=== PATIENT | female | born 1985 | race Caucasian/White ===

== ENCOUNTER 2016-03-09 10:08 | Observation (INO) | payer OTHER ==
[2014-05-28 11:46] VITALS: BP 138/69
[2016-03-09] MEDS ORDERED: ONDANSETRON PF 4 MG/2 ML VIAL. IV PRN (11:15)
[2016-03-09] MEDS ORDERED: MAG HYDROX/AL HYDROX/SIMETH 30 ML ORAL.SUSP PO PRN (11:15)
[2016-03-09] MEDS ORDERED: IV RINGERS,LACTATED 1000ML 1,000 ML IV PRN (11:15)
[2016-03-09] MEDS ORDERED: ACETAMINOPHEN 325 MG TABLET. PO PRN (11:15)
[2016-03-09 11:34] LABS: BARBITURATES NEG (NEG); BENZODIAZEPINES NEG (NEG); CANNABINOIDS NEG (NEG); COCAINE NEG (NEG); ETHANOL, URINE NEG (NEG); METHADONE NEG (NEG); OPIATES NEG (NEG); PHENCYCLIDINE NEG (NEG)
[2016-03-09 12:37] LABS: BILIRUBIN,URINE MODERATE (NEG); GLUCOSE,URINE NEGATIVE (NEG); NITRITE,URINE NEGATIVE (NEG)
[2016-03-09 12:47] LABS: BACTERIA,URINE 0 /HPF (0-FEW); PROTEIN,URINE NEGATIVE (NEG-TRACE); RBC,URINE 0 /HPF (0-2); SQUAMOUS EPITHELIAL CELL,UR MOD /LPF
== END 2016-03-09 15:45 | disposition home or self-care (01) ==
LOC: 3 SO LND 10:08
PROVIDERS: ADMIT Obstetrics & Gynecology; ATTEND Obstetrics & Gynecology
DX: O26.893 Other specified pregnancy related conditions, third trimester (principal); R19.7 Diarrhea, unspecified; R11.10 Vomiting, unspecified; Z3A.31 31 weeks gestation of pregnancy
CPT/HCPCS: 81001; 87086; G0378; G0379; G0481

== ENCOUNTER 2016-04-22 17:14 | Observation (INO) | payer OTHER ==
[2014-05-28 11:46] VITALS: BP 138/69
== END 2016-04-22 20:15 | disposition home or self-care (01) ==
LOC: 3 SO LND 17:14
PROVIDERS: ADMIT Obstetrics & Gynecology; ATTEND Obstetrics & Gynecology
DX: O26.893 Other specified pregnancy related conditions, third trimester (principal); R10.9 Unspecified abdominal pain; M54.9 Dorsalgia, unspecified; Z3A.37 37 weeks gestation of pregnancy
CPT/HCPCS: G0378; G0379

== ENCOUNTER 2016-05-05 05:28 | Inpatient (IN) | payer OTHER ==
[~2016-05-05] VITALS: Ht 154.9 cm; Wt 110.7 kg
[2016-05-05 05:59] VITALS: BP 129/69
[2016-05-05] MEDS ORDERED: 0.9 % SODIUM CHLORIDE 10 ML DISP.SYRIN. IV PRN ×2 (06:00→16:15)
[2016-05-05] MEDS ORDERED: TERBUTALINE 1 MG/ML VIAL. SQ PRN (06:00)
[2016-05-05] MEDS ORDERED: FENTANYL PF 100 MCG/2 ML VIAL. IV PRN (06:00)
[2016-05-05] MEDS ORDERED: BUTORPHANOL 2 MG VIAL. IV PRN (06:00)
[2016-05-05] MEDS ORDERED: ONDANSETRON PF 4 MG/2 ML VIAL. IV PRN ×2 (06:00→09:45)
[2016-05-05] MEDS ORDERED: MAG HYDROX/ALUMINUM HYD/SIMETH 30 ML ORAL.SUSP PO PRN ×2 (06:00→16:15)
[2016-05-05] MEDS ORDERED: IBUPROFEN 600 MG TABLET. PO PRN (06:00)
[2016-05-05] MEDS ORDERED: OXYTOCIN 30 UNIT/500 ML PREMIX 500 ML IV PRN ×3 (06:00→16:15)
[2016-05-05] MEDS ORDERED: LIDOCAINE 1% PF 30 ML VIAL. INJ PRN (06:00)
[2016-05-05] MEDS ORDERED: PENICILLIN G K 5,000,000 UNIT in IV NORMAL SALINE 100ML 100 ML IV ONE (06:00)
[2016-05-05] MEDS ORDERED: ACETAMINOPHEN 325 MG TABLET. PO PRN ×2 (06:00→16:15)
[2016-05-05] MEDS: IV RINGERS,LACTATED 1000ML 1,000 ML IV SCH ×2 (06:45→11:17)
[2016-05-05 07:14] LABS: HEMATOCRIT 34.1 % (36.0-47.0); HEMOGLOBIN 10.9 g/dL (12.0-15.5); RED BLOOD COUNT 4.16 x10^6/uL (3.50-5.40); RED CELL DISTRIBUTION WIDTH 15.1 % (11.5-14.5); WHITE BLOOD COUNT 16.4 x10^3/uL (4.0-11.0)
--- NOTE | 2016-05-05 08:47 | PDOC1 ---
OB - History Hx of Present Care: Good Care Ultrasounds: Normal mid trimester US Obstetrical Complications: None Medical Complications: None Other Concerns: H/o and desires again Past Family/Social History * Past Medical, Surgical, Family and Obstetric Histories reviewed from chart. Rubella: Immune RPR/VDRL: Negative GBS Status: Negative HBsAG: Negative OB - Chief Complaint & HPI Date of Admission: Date of Admission: May 05, 2016 at 05:28 Chief Complaint/History : 2 Para: 3 EGA: 39 Reason for admission: induction of labor Indication for induction: maternal discomfort Admission Nurse Assessment Rev: Yes Problems: OB - Admission Exam Physical Exam Vitals: VS - Last 72 Hours, by Label Date Time Temp Pulse Resp B/P Pulse Ox O2 Delivery O2 Flow Rate FiO2 05/05/16 05:59 109 20 129/69 Room Air HEENT: Normal Heart: Regular Rate Lungs: Clear Abdomen: Gravid, Non tender, Soft Extremities: Edema Reflexes: Normal Cervical Dilatation: 2cm Effacement: 75% Station: -3 Membranes: Intact Heart Rate: Normal Accelerations: Accelerations Present Decelerations: No decelerations Contractions on Admission: >10 Minutes Apart Intensity: Mild Text A: 39 wks IUP H/o c/s x 1 for twins H/o twins IOL secondary to maternal discomforts of P: Admit for IOL with pitocin. VIPUL OCONNOR Jr, MD May 05, 2016 08:47
[2016-05-05] MEDS ORDERED: ROPIVacaine 0.2% IN 0.9%NACL PF 40 MG/20 ML DISP.SYRIN. ONE ×2 (09:43→11:41)
[2016-05-05] MEDS ORDERED: EPHEDRINE PF IN SALINE 50 MG/5 ML DISP.SYRIN. IV PRN (09:45)
[2016-05-05] MEDS ORDERED: L&D EPIDURAL CASSETTE 100 ML EP PRN (09:45)
[2016-05-05] MEDS ORDERED: NALOXONE 0.4 MG/ML VIAL. IV PRN (09:45)
[2016-05-05] MEDS ORDERED: FENTANYL PF 100 MCG/2 ML VIAL. EPI ONE (09:45)
[2016-05-05] MEDS ORDERED: ROPIVacaine 0.2% PF 10 ML VIAL. EPI ONE (09:45)
[2016-05-05] MEDS: PENICILLIN G K 2,500,000 UNIT in IV NORMAL SALINE 50ML 50 ML IV SCH ×2 (10:20→14:10)
[2016-05-05] MEDS ORDERED: EPHEDRINE PF IN SALINE 50 MG/5 ML DISP.SYRIN. IV ONE (12:43)
[2016-05-05] MEDS ORDERED: EPHEDRINE SULFATE 50 MG/ML VIAL. ONE (13:38)
--- NOTE | 2016-05-05 16:09 | PDOC ---
VAGINAL DELIVERY DATE DATE: 05/05/16 TIME: 16:08 : 3 Para: 5 EGA: 39 VAGINAL DELIVERY: VTX VACCUM ASSISTED: No PLACENTA: Spontaneous 8/8 SEX: Female WEIGHT Weight [3415 gm ] Nuchal Cord: Yes, Times 1 Amniotic Fluid: Clear PAIN: Epidural EPISIOTOMY: No EXTENSION: No EBL 300 ml COMPLICATIONS none CONDITION pt. stable Signs of Intrauterine Infectio: None Shoulder Dystocia: No Problems: VIPUL OCONNOR Jr, MD May 05, 2016 16:09
[2016-05-05] MEDS ORDERED: BENZOCAINE 20% TOPICAL AEROSOL SPRAY 57GM CAN. TP PRN (16:15)
[2016-05-05] MEDS ORDERED: SIMETHICONE 80 MG TAB.CHEW PO PRN (16:15)
[2016-05-05] MEDS ORDERED: MMR per PROTOCOL. MC PRN (16:15)
[2016-05-05] MEDS ORDERED: ZOLPIDEM 5 MG TABLET. PO PRN (16:15)
[2016-05-05] MEDS ORDERED: DOCUSATE SODIUM 100 MG CAPSULE PO PRN (16:15)
[2016-05-05] MEDS ORDERED: OXYCODONE/APAP 5/325 TABLET. PO PRN (16:15)
[2016-05-05] MEDS ORDERED: MAGNESIUM HYDROXIDE 2,400 MG/30 ML ORAL.SUSP. PO PRN (16:15)
[2016-05-05] MEDS ORDERED: PHENYLEPH/MINERAL OIL/PETROLAT RECTAL OINTMENT 28GM TUBE. RC PRN (16:15)
[2016-05-05] MEDS ORDERED: HYDROCORTISONE 1% TOPICAL OINTMENT 30GM TUBE. TP PRN (16:15)
[2016-05-05] MEDS ORDERED: DIPHENHYDRAMINE HCL 25 MG CAPSULE PO PRN (16:15)
[2016-05-05 19:39] VITALS: BP 103/49
[2016-05-05 20:40] VITALS: BP 102/47
[2016-05-05] MEDS: IBUPROFEN 800 MG TABLET. PO PRN (22:36)
[2016-05-05 23:43] VITALS: BP 118/68
[2016-05-06 04:54] LABS: BASO # 0.1 x10^3/uL (0.0-0.2); BASO % 1 % (0-3); EOS % 2 % (0-3); HEMOGLOBIN 9.7 g/dL (12.0-15.5); LYMPH % 18 % (24-48); MEAN CORPUSCULAR HEMOGLOBIN 27 pg (25-35); MEAN CORPUSCULAR HGB CONC 32 g/dL (31-37); MEAN CORPUSCULAR VOLUME 82 fL (79-100); MONO % 9 % (0-9); NEUT % 71 % (31-73); PLATELET COUNT 252 x10^3/uL (140-400); RED BLOOD COUNT 3.66 x10^6/uL (3.50-5.40); RED CELL DISTRIBUTION WIDTH 15.3 % (11.5-14.5); WHITE BLOOD COUNT 16.4 x10^3/uL (4.0-11.0)
[2016-05-06 06:03] VITALS: BP 95/40
[2016-05-06] MEDS ORDERED: FERROUS SULFATE 325 MG TABLET PO SCH (08:00)
--- NOTE | 2016-05-06 09:35 | PDOC ---
OB Progress Note Date of Service 05/06/16 Time of Evaluation 6776 Notes Pt. feeling well. Encouraged patient to remain on floor and counseled on nicotine patch. She will use nicotine patch while in hospital. Lochia minimal. Lab Laboratory Tests Test 05/05/16 06:20 05/06/16 04:30 White Blood Count 16.4x10^3/uL (4.0-11.0) 16.4x10^3/uL (4.0-11.0) Red Blood Count 4.16x10^6/uL (3.50-5.40) 3.66x10^6/uL (3.50-5.40) Hemoglobin 10.9g/dL (12.0-15.5) 9.7g/dL (12.0-15.5) Hematocrit 34.1% (36.0-47.0) 30.0% (36.0-47.0) Mean Corpuscular Volume 82fL (79-100) 82fL (79-100) Mean Corpuscular Hemoglobin 26pg (25-35) 27pg (25-35) Mean Corpuscular Hemoglobin Concent 32g/dL (31-37) 32g/dL (31-37) Red Cell Distribution Width 15.1% (11.5-14.5) 15.3% (11.5-14.5) Platelet Count 282x10^3/uL (140-400) 252x10^3/uL (140-400) Neutrophils (%) (Auto) 71% (31-73) Lymphocytes (%) (Auto) 18% (24-48) Monocytes (%) (Auto) 9% (0-9) Eosinophils (%) (Auto) 2% (0-3) Basophils (%) (Auto) 1% (0-3) Neutrophils # (Auto) 11.7x10^3uL (1.8-7.7) Lymphocytes # (Auto) 3.0x10^3/uL (1.0-4.8) Monocytes # (Auto) 1.4x10^3/uL (0.0-1.1) Eosinophils # (Auto) 0.3x10^3/uL (0.0-0.7) Basophils # (Auto) 0.1x10^3/uL (0.0-0.2) Laboratory Tests Test 05/06/16 04:30 White Blood Count 16.4x10^3/uL (4.0-11.0) Red Blood Count 3.66x10^6/uL (3.50-5.40) Hemoglobin 9.7g/dL (12.0-15.5) Hematocrit 30.0% (36.0-47.0) Mean Corpuscular Volume 82fL (79-100) Mean Corpuscular Hemoglobin 27pg (25-35) Mean Corpuscular Hemoglobin Concent 32g/dL (31-37) Red Cell Distribution Width 15.3% (11.5-14.5) Platelet Count 252x10^3/uL (140-400) Neutrophils (%) (Auto) 71% (31-73) Lymphocytes (%) (Auto) 18% (24-48) Monocytes (%) (Auto) 9% (0-9) Eosinophils (%) (Auto) 2% (0-3) Basophils (%) (Auto) 1% (0-3) Neutrophils # (Auto) 11.7x10^3uL (1.8-7.7) Lymphocytes # (Auto) 3.0x10^3/uL (1.0-4.8) Monocytes # (Auto) 1.4x10^3/uL (0.0-1.1) Eosinophils # (Auto) 0.3x10^3/uL (0.0-0.7) Basophils # (Auto) 0.1x10^3/uL (0.0-0.2) Medications Current Medications Sodium Chloride 3 ml 3 ml QSHIFT PRN IV AFTER MEDS AND BLOOD DRAWS; Start 05/05 at 06:00 Lactated Ringer's (Iv Lactated Ringers) 1,000 ml @ 125 mls/hr Q8H IV Last administered on 05/05/16t 11:17; Start 05/05/16 at 05:48 Butorphanol Tartrate (Stadol) 2 mg PRN Q1HR PRN IV Severe labor pain; Start 12/12 at 06:00 Fentanyl Citrate (Fentanyl 2ml Vial) 100 mcg PRN Q20MIN PRN IV Labor pain; Start 05/05/16 at 06:00 Acetaminophen (Tylenol) 650 mg PRN Q6HRS PRN PO MILD PAIN / TEMP; Start at 06:00 Ondansetron HCl (Zofran) 4 mg PRN Q4HRS PRN IV NAUSEA/VOMITING; Start 05/05/16 at 06:00 Al Hydroxide/Mg Hydroxide (Mylanta Plus Xs) 30 ml PRN Q4HRS PRN PO HEARTBURN / GAS; Start 05/05/16 at 06:00; Stop 05/06/16 at 04:51; Status DC Terbutaline Sulfate (Brethine) 0.25 mg 1X PRN PRN SQ SEE COMMENTS; Start at 06:00; Stop 05/06/16 at 05:59; Status DC Lidocaine HCl 30 ml 30 ml 1X PRN PRN INJ SEE COMMENTS; Start 05/05/16 at 06:00 ; Stop 05/07/16 at 05:59 Oxytocin/Sodium Chloride 500 ml @ 0 mls/hr CONT PRN IV SEE I/O RECORD Last administered on 05/05/16 07:41; Start 05/05/16 at 06:00; Stop 05/06/16 at 04:52 ; Status DC Oxytocin/Sodium Chloride (Oxytocin Premix Infusion) 500 ml @ 0 mls/hr CONT PRN PRN IV Post delivery bleeding; Start 05/05/16 at 06:00 Ibuprofen 600 mg 600 mg PRN Q6HRS PRN PO PAIN; Start 05/05/16 at 06:00 Penicillin G Potassium [id number] unit/Sodium Chloride 100 ml @ 100 mls/hr 1X ONCE IV Last administered on 05/05/16 06:45; Start 05/05/16 at 06:00; Stop 12/12 at 06:59; Status DC Penicillin G Potassium/Sodium Chloride (Pfizerpen/Iv Sodium Chloride 0.9% 50ml) 50 ml @ 100 mls/hr Q4H IV Last administered on 05/05/16 14:10; Start at 10:00; Stop 05/06/16 at 04:52; Status DC Ephedrine Sulfate 10 mg PRN Q2MIN PRN IV IF SBP<90 Last administered on 12:46; Start 05/05/16 at 09:45 Naloxone HCl (Narcan) 0.04 mg PRN Q1MIN PRN IV SEE COMMENTS; Start 05/05/16 at 09:45 Fentanyl Citrate 100 mcg 100 mcg 1X ONCE EPI Last administered on 05/05/16 09 :58; Start 05/05/16 at 09:45; Stop 05/05/16 at 09:47; Status DC Ropivacaine/ Fentanyl/NS (Gobslqoq-Otklp-DC 3 Mcg-0.1%) 100 ml @ 14 mls/hr CONT PRN EP PAIN Last administered on 05/05/16 10:01; Start 05/05/16 at 09:45 Ondansetron HCl (Zofran) 4 mg PRN Q6HRS PRN IV NAUSEA/VOMITING; Start 05/05/16 at 09:45 Ropivacaine (Naropin 0.2%) 20 ml 1X ONCE EPI ; Start 05/05/16 at 09:45; Stop at 09:47; Status DC Ropivacaine 40 mg STK-MED ONCE .ROUTE Last administered on 05/05/16 14:10; Start 05/05/16 at 09:43; Stop 05/05/16 at 09:44; Status DC Ropivacaine 40 mg STK-MED ONCE .ROUTE Last administered on 05/05/16 12:31; Start 05/05/16 at 11:41; Stop 05/05/16 at 11:42; Status DC Ephedrine Sulfate 50 mg STK-MED ONCE IV ; Start 05/05/16 at 12:43; Stop at 12:44; Status DC Ephedrine Sulfate (Akovaz) 50 mg STK-MED ONCE .ROUTE ; Start 05/05/16 at 13:38; Stop 05/05/16 at 13:39; Status DC Sodium Chloride 10 ml 10 ml QSHIFT PRN IV AFTER MEDS AND BLOOD DRAWS; Start 12/12 at 16:15 Oxytocin/Sodium Chloride (Oxytocin Premix Infusion) 500 ml @ 62.5 mls/hr CONT PRN IV SEE I/O RECORD; Start 05/05/16 at 16:15; Stop 05/06/16 at 00:14; Status DC Acetaminophen (Tylenol) 650 mg PRN Q6HRS PRN PO MILD PAIN / TEMP; Start at 16:15; Stop 05/06/16 at 04:51; Status DC Ibuprofen (Motrin) 800 mg PRN Q8HRS PRN PO INFLAMMATION/PAIN PREVENTION Last administered on 05/05/16t 22:36; Start 05/05/16 at 16:15 Docusate Sodium (Colace) 100 mg PRN BID PRN PO CONSTIPATION; Start 05/05/16 at 16:15 Magnesium Hydroxide (Milk Of Magnesia) 2,400 mg PRN DAILY PRN PO CONSTIPATION; Start 05/05/16 at 16:15 Al Hydroxide/Mg Hydroxide (Mylanta Plus Xs) 30 ml PRN Q4HRS PRN PO HEARTBURN / GAS; Start 05/05/16 at 16:15 Simethicone (Gas-X) 80 mg PRN AFTMEALHC PRN PO GAS / BLOATING; Start 05/05/16 at 16:15 Diphenhydramine HCl (Benadryl) 25 mg PRN Q6HRS PRN PO ITCHING; Start 05/05/16 at 16:15 Benzocaine (Americaine) 1 spray PRN QID PRN TP TOPICAL PAIN; Start 05/05/16 at 16:15 Phenyleph/Shark Oil/Min Oil/Petrol (Preparation H) 1 erin PRN QID PRN RC RECTAL PAIN; Start 05/05/16 at 16:15 Hydrocortisone (Cortaid) 1 erin PRN QID PRN TP PERINEAL PAIN; Start 05/05/16 at 16:15 Ferrous Sulfate (Feosol) 325 mg BIDWMEALS PO ; Start 05/06/16 at 08:00 Zolpidem Tartrate (Ambien) 5 mg PRN QHS PRN PO INSOMNIA, MAY REPEAT X1; Start 05/05/16 at 16:15 Info (Do NOT chart on this placeholder) 1 ea 1X PRN PRN MC SEE COMMENTS; Start 05/05/16 at 16:15 Info (Do NOT chart on this placeholder) 1 ea 1X PRN PRN MC SEE COMMENTS; Start 05/05/16 at 16:15 Oxycodone/ Acetaminophen (Percocet 5/325) 2 tab PRN Q4HRS PRN PO MODERATE PAIN , SEVERE PAIN; Start 05/05/16 at 16:15 Exam Abd: soft, non tender, fundus firm Assessment PPD#1 s/p Plan of Care: Continue current Tx, Mgmt (Nicotine patch.) IVPUL OCONNOR Jr, MD May 06, 2016 09:35
[2016-05-06] MEDS ORDERED: NICOTINE 14MG PATCH. TD SCH (10:00)
[2016-05-06] MEDS: IBUPROFEN 800 MG TABLET. PO PRN ×2 (10:39→18:29)
[2016-05-06] MEDS ORDERED: NICOTINE POLACRILEX 2MG GUM PACKAGE of 12. BC PRN (12:30)
[2016-05-06 14:00] VITALS: BP 124/62
[2016-05-06 23:07] VITALS: BP 105/54
[2016-05-07 06:28] VITALS: BP 100/67
--- NOTE | 2016-05-07 09:17 | PDOC3 ---
OB DISCHARGE SUMMARY DATE OF ADMISSION: 05/05/16 DATE OF DISCHARGE: 05/07/16 REASON FOR ADMISSION: Induction of labor PROCEDURES: None INTRAPARTUM PROCEDURES: Others (-KAYLIE) PROCEDURES: None OPERATIONS: None DISCHARGE DIAGNOSIS: Term Delivered DISCHARGE INFORMATION: Activity, Diet HOSPITAL COURSE Unremarkable CONDITION AT DISCHARGE Stable DERRICK BAEZ MD May 07, 2016 09:17
[2016-05-07] MEDS ORDERED: NAPR500T PO (09:19)
[2016-05-07] MEDS ORDERED: HYDR-971 PO (09:19)
[2016-05-07 11:39] VITALS: BP 130/64
== END 2016-05-07 14:55 | disposition home or self-care (01) | DRG 775 ==
LOC: 3 SO LND 05:28 → 3 NORTH 19:25
PROVIDERS: ADMIT Obstetrics & Gynecology; ATTEND Obstetrics & Gynecology
PROC: 10E0XZZ Delivery of Products of Conception, External Approach (ICD-10-PCS; principal; 2016-05-05)
PROC: 3E0S3CZ (ICD-10-PCS; 2016-05-05)
PROC: 00HU33Z Insertion of Infusion Device into Spinal Canal, Percutaneous Approach (ICD-10-PCS; 2016-05-05)
DX: O34.219 Maternal care for unspecified type scar from previous cesarean delivery (principal); Z37.0 Single live birth; Z3A.39 39 weeks gestation of pregnancy; O69.81X0 Labor and delivery complicated by cord around neck, without compression, not applicable or unspecified
CPT/HCPCS: 36415; 85027; 86593; 86850; 86900; 86901; J2540; J2590; J2795; J3010; J7120

== ENCOUNTER 2017-07-02 11:31 | Emergency (ER) | payer OTHER | END 2017-07-02 13:21 | disposition home or self-care (01) | LOC: ER 11:31 | DX: T63.461A Toxic effect of venom of wasps, accidental (unintentional), initial encounter (principal); L08.9 Local infection of the skin and subcutaneous tissue, unspecified; W57.XXXA Bitten or stung by nonvenomous insect and other nonvenomous arthropods, initial encounter; Y93.89 Activity, other specified; Y99.8 Other external cause status; Y92.89 Other specified places as the place of occurrence of the external cause | CPT/HCPCS: 99283 ==

== ENCOUNTER 2017-11-23 04:36 | Emergency (ER) | payer OTHER ==
[~2017-11-23] VITALS: Ht 154.9 cm; Wt 117.9 kg
[~2017-11-23 04:36] MED LIST: DOXY100T PO; HYDR-971 PO; MUPI15CR TP; NAPR-683 PO
--- NOTE | 2017-11-23 05:09 | PHYS DOC ---
Past Medical History Past Medical History: Ectopic Past Surgical History: , Oophorectomy Additional Past Surgical Histo: RUPTURED ECTOPIC Smoking: Cigarettes Alcohol Use: Occasionally Drug Use: None Adult General Chief Complaint Chief Complaint: HEMATEMESIS/VOMITING BLOOD [facility] HPI Patient is a 32-year-old female presents to the emergency department for evaluation. She states that at about 1 AM, she began experiencing what she thought was heartburn, with some epigastric discomfort radiating towards her back. She states she felt very nauseated, but did not vomit. She states that standing in a warm shower seemed to help alleviate her pain but the pain returned when she got out of the shower. She states she's had similar episodes of the pain in the past on and off, but usually goes away on its own. She has not noticed a correlation with although she states that she has not noticed a correlation with eating and the onset of the pain. She did eat hamburger helper last night for dinner. She states she forced herself to vomit once, thinking that would relieve her pain, and initially she vomited food, but the latter part of her emesis seemed to be mixed with some blood. She has not had any black or bloody bowel movements, denies any dizziness or lightheadedness. She is unable to qualify her pain, stating that "it just hurts". The pain does radiate around towards her back. She is uncertain if the pain is more right or left-sided. There are no alleviating, or exacerbating factors to the patient's symptoms, except as noted above. Review of Systems Review of Systems Constitutional: Denies fever or chills [] Eyes: Denies change in visual acuity, redness, or eye pain [] HENT: Denies nasal congestion or sore throat [] Respiratory: Denies cough or shortness of breath [] Cardiovascular:The patient denies any shortness of breath, chest pain, palpitations, or orthopnea [] GI: No additional information not addressed in HPI [] : Denies dysuria or hematuria [] Musculoskeletal: Denies back pain or joint pain [] Integument: Denies rash or skin lesions [] Neurologic: Denies headache, focal weakness or sensory changes [] Endocrine: Denies polyuria or polydipsia [] All other systems were reviewed and found to be within normal limits, except as documented in this note. Current Medications Current Medications Current Medications Medications (Trade) Dose Ordered Sig/Frank Start Time Stop Time Status Last Admin Dose Admin Morphine Sulfate (Morphine Sulfate) 4 mg PRN Q15MIN PRN 11/23/17 05:15 11/24/17 05:14 11/23/17 05:27 4 MG Multi-Ingredient Mouthwash/Gargle (Gi Cocktail) 20 ml 1X ONCE 11/23/17 06:00 11/23/17 06:01 DC 11/23/17 05:54 20 ML Ondansetron HCl (Zofran) 4 mg 1X ONCE 11/23/17 05:30 11/23/17 05:31 DC 11/23/17 05:26 4 MG Sodium Chloride 1,000 ml @ 1,000 mls/hr Q1H 11/23/17 05:30 11/23/17 06:29 11/23/17 05:26 1,000 MLS/HR Allergies Allergies Allergies Coded Allergies Type Severity Reaction Last Updated Verified No Known Drug Allergies 05/28/14 No Physical Exam Physical Exam PHYSICAL EXAM: CONSTITUTIONAL: Well developed, well nourished HEAD: normocephalic, atraumatic EENT: PERRL, EOMI. Conjunctivae normal color, sclerae non-icteric; moist mucous membranes. NECK: Supple, non-tender; no meningismus. LUNGS: Lungs CTA, breathing even and unlabored. Normal air movement. HEART: Regular rate and rhythm, no murmur CHEST: No deformity; non-tender ABDOMEN: The abdomen is soft,there is diffuse epigastric tenderness to palpation , without rebound or guarding. Normal bowel sounds are present. The lower abdomen is relatively soft and non-tender, no masses or bruits. EXTREM: Normal ROM; no deformity, no calf tenderness. Normal pulses palpable in all extremities. There is no pedal edema. SKIN: No rash; no diaphoresis NEURO: Alert; normal speech and cognition; CN's grossly intact; strength grossly intact without focal deficit. BACK: No CVA TTP. Current Patient Data Vital Signs Vital Signs Date Time Temp Pulse Resp B/P (MAP) Pulse Ox O2 Delivery O2 Flow Rate FiO2 11/23/17 05:55 62 20 145/78 (100) 97 Room Air 11/23/17 04:50 97.6 97.6 Lab Values Laboratory Tests Test 11/23/17 04:54 11/23/17 05:28 White Blood Count 10.9 x10^3/uL (4.0-11.0) Red Blood Count 4.91 x10^6/uL (3.50-5.40) Hemoglobin 12.9 g/dL (12.0-15.5) Hematocrit 38.9 % (36.0-47.0) Mean Corpuscular Volume 79 fL (79-100) Mean Corpuscular Hemoglobin 26 pg (25-35) Mean Corpuscular Hemoglobin Concent 33 g/dL (31-37) Red Cell Distribution Width 15.0 % (11.5-14.5) H Platelet Count 338 x10^3/uL (140-400) Neutrophils (%) (Auto) 59 % (31-73) Lymphocytes (%) (Auto) 29 % (24-48) Monocytes (%) (Auto) 8 % (0-9) Eosinophils (%) (Auto) 4 % (0-3) H Basophils (%) (Auto) 1 % (0-3) Neutrophils # (Auto) 6.4 x10^3uL (1.8-7.7) Lymphocytes # (Auto) 3.1 x10^3/uL (1.0-4.8) Monocytes # (Auto) 0.8 x10^3/uL (0.0-1.1) Eosinophils # (Auto) 0.5 x10^3/uL (0.0-0.7) Basophils # (Auto) 0.1 x10^3/uL (0.0-0.2) Sodium Level 141 mmol/L (136-145) Potassium Level 3.9 mmol/L (3.5-5.1) Chloride Level 103 mmol/L (98-107) Carbon Dioxide Level 29 mmol/L (21-32) Anion Gap 9 (6-14) Blood Urea Nitrogen 10 mg/dL (7-20) Creatinine 0.7 mg/dL (0.6-1.0) Estimated GFR (Cockcroft-Gault) 97.6 BUN/Creatinine Ratio 14 (6-20) Glucose Level 107 mg/dL (70-99) H Calcium Level 9.4 mg/dL (8.5-10.1) Total Bilirubin 0.1 mg/dL (0.2-1.0) L Aspartate Amino Transferase (AST) 12 U/L (15-37) L Alanine Aminotransferase (ALT) 19 U/L (14-59) Alkaline Phosphatase 90 U/L (46-116) Troponin I Quantitative < 0.017 ng/mL (0.000-0.055) Total Protein 7.3 g/dL (6.4-8.2) Albumin 3.3 g/dL (3.4-5.0) L Albumin/Globulin Ratio 0.8 (1.0-1.7) L Lipase 119 U/L (73-393) Urine Collection Type Unknown Urine Color Yellow Urine Clarity Clear Urine pH 6.5 Urine Specific [place] 1.025 Urine Protein Negative mg/dL (NEG-TRACE) Urine Glucose (UA) Negative mg/dL (NEG) Urine Ketones (Stick) Negative mg/dL (NEG) Urine Blood Negative (NEG) Urine Nitrite Negative (NEG) Urine Bilirubin Negative (NEG) Urine Urobilinogen Dipstick 0.2 mg/dL (0.2 mg/dL) Urine Leukocyte Esterase Negative (NEG) Urine RBC Occ /HPF (0-2) Urine WBC 1-4 /HPF (0-4) Urine Squamous Epithelial Cells Few /LPF Urine Amorphous Sediment Present /HPF Urine Bacteria 0 /HPF (0-FEW) Urine Test Negative (NEG) Laboratory Tests 11/23/17 04:54 Laboratory Tests 11/23/17 04:54 EKG EKG [] Radiology/Procedures Radiology/Procedures [PROCEDURE: ABDOMEN LTD Indication:heartburn x 3 hrs, morbid obesity TECHNIQUE: Grayscale, color Doppler and spectral waveform is of the abdomen obtained. COMPARISON:None FINDINGS: Visualized pancreas is within normal limits. Pancreatic tail and body are visualized not visualized due to overlying bowel gas. IVC is visualized. Main portal vein is patent with hepatopedal flow. Liver is mildly enlarged measuring 18 cm in length with diffusely increased echogenicity and decreased through transmission. Right kidney measures 10.2 cm in length without hydronephrosis. Gallstones noted. No pericholecystic fluid or gallbladder wall thickening. CBD measures 3 mm in diameter and is within normal limits. IMPRESSION: 1. Cholelithiasis without imaging evidence of acute cholecystitis. 2. Mild hepatomegaly with hepatic steatosis.] Course & Med Decision Making Course & Med Decision Making Pertinent Labs and Imaging studies reviewed. (See chart for details) [6:10 AM: Pt condition remains stable. Her pain has completely resolved. I discussed test results with the patient, the need for close follow-up with both general surgery and GI, and return precautions.] Gene Disclaimer Dragon Disclaimer This electronic medical record was generated, in whole or in part, using a voice recognition dictation system. Departure Departure Impression: Primary Impression: Abdominal pain Additional Impression: Cholelithiasis Disposition: HOME, SELF-CARE Condition: STABLE Referrals: ARISTIDES BAIRD MD (PCP) JUAN HERNANDEZ MD, THOMAS W MD Patient Instructions: Abdominal Pain, Biliary Colic Additional Instructions: Avoiding fatty or greasy foods may help reduce episodes of pain. If you develop worsening pain, dizziness, lightheadedness, recurrent vomiting, recurrent bloody emesis, black or bloody stools, fever, or any other new, or worsening symptoms, return to the emergency department for further evaluation. The prescribed medication may cause drowsiness. Use caution while taking. Scripts Omeprazole (OMEPRAZOLE) 20 Mg Capsule.dr 20 MG PO DAILY for 30 Days, #30 CAP Prov: AFSHIN RIOS MD 11/23/17 Hydrocodone/Apap 5-325 (NORCO 5-325 TABLET) 1 Each Tablet 1 TAB PO TID, #20 TAB Prov: AFSHIN RIOS MD 11/23/17 Problem Qualifiers AFSHIN RIOS MD Nov 23, 2017 05:09
[2017-11-23] MEDS ORDERED: MORPHINE SULFATE 4 MG/ML VIAL. IV/SQ PRN (05:15)
[2017-11-23] MEDS ORDERED: IV NORMAL SALINE 1000ML BAG 1,000 ML IV SCH (05:30)
[2017-11-23] MEDS ORDERED: ONDANSETRON PF 4 MG/2 ML VIAL. IV ONE (05:30)
[2017-11-23 05:31] LABS: BASO # 0.1 x10^3/uL (0.0-0.2); BASO % 1 % (0-3); EOS # 0.5 x10^3/uL (0.0-0.7); EOS % 4 % (0-3); HEMATOCRIT 38.9 % (36.0-47.0); HEMOGLOBIN 12.9 g/dL (12.0-15.5); LYMPH # 3.1 x10^3/uL (1.0-4.8); LYMPH % 29 % (24-48); MEAN CORPUSCULAR HEMOGLOBIN 26 pg (25-35); MEAN CORPUSCULAR HGB CONC 33 g/dL (31-37); MEAN CORPUSCULAR VOLUME 79 fL (79-100); MONO # 0.8 x10^3/uL (0.0-1.1); MONO % 8 % (0-9); NEUT # 6.4 x10^3uL (1.8-7.7); NEUT % 59 % (31-73); PLATELET COUNT 338 x10^3/uL (140-400); RED BLOOD COUNT 4.91 x10^6/uL (3.50-5.40); WHITE BLOOD COUNT 10.9 x10^3/uL (4.0-11.0)
[2017-11-23 05:44] LABS: BILIRUBIN,URINE NEGATIVE (NEG); CLARITY,URINE CLEAR; COLOR,URINE YELLOW; NITRITE,URINE NEGATIVE (NEG); PH,URINE 6.5; PROTEIN,URINE NEGATIVE (NEG-TRACE); UROBILINOGEN,URINE 0.2 mg/dL (0.2 mg/dL)
[2017-11-23 05:46] LABS: CALCIUM 9.4 mg/dL (8.5-10.1); CREATININE 0.7 mg/dL (0.6-1.0); GFR 97.6; POTASSIUM 3.9 mmol/L (3.5-5.1)
[2017-11-23 05:51] LABS: U PREG PATIENT NEGATIVE (NEG)
[2017-11-23 05:52] LABS: ALBUMIN 3.3 g/dL (3.4-5.0); ALBUMIN/GLOBULIN RATIO 0.8 (1.0-1.7); TOTAL BILIRUBIN 0.1 mg/dL (0.2-1.0); TOTAL PROTEIN 7.3 g/dL (6.4-8.2)
[2017-11-23 05:55] VITALS: BP 145/78
--- NOTE | 2017-11-23 05:59 | RAD ---
Indication:heartburn x 3 hrs, morbid obesity TECHNIQUE: Grayscale, color Doppler and spectral waveform is of the abdomen obtained. COMPARISON:None FINDINGS: Visualized pancreas is within normal limits. Pancreatic tail and body are visualized not visualized due to overlying bowel gas. IVC is visualized. Main portal vein is patent with hepatopedal flow. Liver is mildly enlarged measuring 18 cm in length with diffusely increased echogenicity and decreased through transmission. Right kidney measures 10.2 cm in length without hydronephrosis. Gallstones noted. No pericholecystic fluid or gallbladder wall thickening. CBD measures 3 mm in diameter and is within normal limits. IMPRESSION: 1. Cholelithiasis without imaging evidence of acute cholecystitis. 2. Mild hepatomegaly with hepatic steatosis. Electronically signed by: Elan Gutierrez DO (11/23/2017 5:55 AM) [id number]
[2017-11-23] MEDS ORDERED: LIDO:MAALOX 1:1 20 ML SINGLE DOSE. PO ONE (06:00)
[2017-11-23 06:10] LABS: SQUAMOUS EPITHELIAL CELL,UR FEW /LPF
[2017-11-23 06:11] LABS: AMORPHOUS SEDIMENT,UR PRESENT /HPF; BACTERIA,URINE 0 /HPF (0-FEW); RBC,URINE OCC /HPF (0-2)
[2017-11-23] MEDS ORDERED: OMEP20CA9 PO (06:20)
[2017-11-23] MEDS ORDERED: HYDR-971 PO (06:20)
== END 2017-11-23 06:37 | disposition home or self-care (01) ==
LOC: ER 04:36
DX: K80.00 Calculus of gallbladder with acute cholecystitis without obstruction (principal); R16.0 Hepatomegaly, not elsewhere classified; K76.0 Fatty (change of) liver, not elsewhere classified; Z90.722 Acquired absence of ovaries, bilateral; F17.210 Nicotine dependence, cigarettes, uncomplicated
CPT/HCPCS: 36415; 76705; 80053; 81001; 81025; 83690; 84484; 85025; 96361; 96374; 96375; 99285; J2270; J2405; J7030

== ENCOUNTER 2017-12-10 15:34 | Emergency (ER) | payer OTHER ==
[~2017-12-10] VITALS: Ht 160 cm; Wt 117.9 kg
[~2017-12-10 15:34] MED LIST changes: +OMEP20CA9 PO
[2017-12-10 15:52] VITALS: BP 137/68
--- NOTE | 2017-12-10 16:06 | PHYS DOC ---
Past Medical History Past Medical History: Ectopic Past Surgical History: , Oophorectomy Additional Past Surgical Histo: RUPTURED ECTOPIC Alcohol Use: Occasionally Drug Use: None Adult General Chief Complaint Chief Complaint: VAGINAL BLEEDING HPI HPI Patient is a 32 year old who presents to the emergency room with complaints of vaginal bleeding for the last 2 days. Patient states she is she went to her primary care doctor's office last and had a positive test in addition to multiple home tests that were positive. Patient is unsure when her last period was states that she thinks it was in October. Patient denies any nausea, vomiting, diarrhea, abdominal pain, pelvic pain, or back pain. She states that the bleeding is similar to when she has her menstrual cycle. Patient reports that she is 6 para 5 with abortions 2. She has 5 living children. 2 of her pregnancies were twins. She does have a history of an ectopic and one miscarriage. Patient denies any blood clots or tissue in the vaginal discharge. She is currently using thin Maxi pads and has used up to 2 pads an hour, a total of 6 pads today. She states that she is in no pain. Review of Systems Review of Systems Constitutional: Denies fever or chills [] Eyes: Denies change in visual acuity, redness, or eye pain [] HENT: Denies nasal congestion or sore throat [] Respiratory: Denies cough or shortness of breath [] Cardiovascular: No additional information not addressed in HPI [] GI: Denies abdominal pain, nausea, vomiting, or diarrhea [] : Denies dysuria or hematuria; reports vaginal bleeding x2 days, [] Musculoskeletal: Denies back pain or joint pain [] Integument: Denies rash or skin lesions [] Neurologic: Denies headache, focal weakness or sensory changes [] All other systems were reviewed and found to be within normal limits, except as documented in this note. Allergies Allergies Allergies Coded Allergies Type Severity Reaction Last Updated Verified No Known Drug Allergies 05/28/14 No Physical Exam Physical Exam Constitutional: Well developed, well nourished, no acute distress, non-toxic appearance, obese. [] HENT: Normocephalic, atraumatic, bilateral external ears normal, oropharynx moist, no oral exudates, nose normal. [] Eyes: PERRLA, EOMI, conjunctiva normal, no discharge. [] Neck: Normal range of motion, no tenderness, supple, no stridor. [] Cardiovascular:Heart rate regular rhythm, no murmur [] Pelvic Exam: Web Knitter present Gretta RN Abdomen: Nontender, soft External Genitalia: Normal Skin Speculum: Normal vaginal mucosa, bloody cervical discharge Bimanual: No adnexal masses or tenderness, No CMT Skin: Warm, dry, no erythema, no rash. [] Extremities: No cyanosis, no clubbing, ROM intact, no edema. [] Neurologic: Alert and oriented X 3, normal motor function, normal sensory function, no focal deficits noted. [] Psychologic: Affect normal, judgement normal, mood normal. [] Current Patient Data Vital Signs Vital Signs Date Time Temp Pulse Resp B/P (MAP) Pulse Ox O2 Delivery O2 Flow Rate FiO2 12/10/17 15:52 98.4 99 20 137/68 (91) 99 Room Air 98.4 Lab Values Laboratory Tests Test 12/10/17 15:45 12/10/17 15:48 12/10/17 16:00 Urine Collection Type Unknown Urine Color [place] Urine Clarity Clear Urine pH 6.0 Urine Specific [place] 1.025 Urine Protein Negative mg/dL (NEG-TRACE) Urine Glucose (UA) Negative mg/dL (NEG) Urine Ketones (Stick) Trace mg/dL (NEG) Urine Blood Large (NEG) Urine Nitrite Negative (NEG) Urine Bilirubin Negative (NEG) Urine Urobilinogen Dipstick 1.0 mg/dL (0.2 mg/dL) Urine Leukocyte Esterase Small (NEG) Urine RBC >40 /HPF (0-2) Urine WBC 1-4 /HPF (0-4) Urine Squamous Epithelial Cells Occ /LPF Urine Bacteria 0 /HPF (0-FEW) Urine Mucus Mod /LPF POC Urine HCG, Qualitative Hcg negative (Negative) White Blood Count 10.3 x10^3/uL (4.0-11.0) Red Blood Count 4.75 x10^6/uL (3.50-5.40) Hemoglobin 12.4 g/dL (12.0-15.5) Hematocrit 37.2 % (36.0-47.0) Mean Corpuscular Volume 78 fL (79-100) L Mean Corpuscular Hemoglobin 26 pg (25-35) Mean Corpuscular Hemoglobin Concent 33 g/dL (31-37) Red Cell Distribution Width 15.1 % (11.5-14.5) H Platelet Count 378 x10^3/uL (140-400) Neutrophils (%) (Auto) 65 % (31-73) Lymphocytes (%) (Auto) 25 % (24-48) Monocytes (%) (Auto) 7 % (0-9) Eosinophils (%) (Auto) 3 % (0-3) Basophils (%) (Auto) 1 % (0-3) Neutrophils # (Auto) 6.7 x10^3uL (1.8-7.7) Lymphocytes # (Auto) 2.6 x10^3/uL (1.0-4.8) Monocytes # (Auto) 0.7 x10^3/uL (0.0-1.1) Eosinophils # (Auto) 0.3 x10^3/uL (0.0-0.7) Basophils # (Auto) 0.1 x10^3/uL (0.0-0.2) Maternal Serum HCG Beta Subunit 1 mIU/mL (0-5) Laboratory Tests 12/10/17 16:00 Microbiology 12/10/17 Wet Prep - Final, Complete EKG EKG [] Radiology/Procedures Radiology/Procedures 1559- per lab blood type is O+[] PROCEDURE: OB <14 WKS W/TV Examination: Obstetric ultrasound less than 14 weeks HISTORY: History of vaginal bleeding COMPARISON: None available FINDINGS: The uterus measures 9.0 x 7.0 x 5.0 cm. The right ovary measures 2.8 x 2.2 x 1.8 cm. The left ovary measures 2.8 x 3.3 x 1.7 cm. No intrauterine gestational sac is identified. The endometrium measures 3.8 mm in diameter. Blood flow identified in the right and left ovaries. IMPRESSION: No evidence of intrauterine gestational sac. No obvious ectopic gestation identified on the visualized exam. Clinical correlation is suggested. Course & Med Decision Making Course & Med Decision Making Pertinent Labs and Imaging studies reviewed. (See chart for details) dx: vaginal bleeding Ddx: ectopic , incomplete miscarriage, IUP, Labs and U/S were negative for any findings of . Pt was advised of these results. Follow up with PCP in 1-2 days return to ER if symptoms worsen. Pt verbalized an understanding of dx, results, follow up, and return to ED instructions and was in agreement with POC. [] Dragon Disclaimer Dragon Disclaimer This electronic medical record was generated, in whole or in part, using a voice recognition dictation system. Departure Departure Impression: Primary Impression: Vaginal bleeding Disposition: 01 HOME, SELF-CARE Condition: STABLE Referrals: ARISTIDES BAIRD MD (PCP) Patient Instructions: Abnormal Uterine Bleeding Additional Instructions: Your testing was negative in the ER today and your ultrasound showed no evidence of a . Follow up with your primary care doctor in 1-2 days. Return to the ER if your symptoms worsen. RINA CAR SALES AND MARKETING ASSISTANT Dec 10, 2017 16:06
[2017-12-10 16:15] LABS: BASO # 0.1 x10^3/uL (0.0-0.2); BASO % 1 % (0-3); EOS # 0.3 x10^3/uL (0.0-0.7); EOS % 3 % (0-3); HEMATOCRIT 37.2 % (36.0-47.0); HEMOGLOBIN 12.4 g/dL (12.0-15.5); LYMPH # 2.6 x10^3/uL (1.0-4.8); LYMPH % 25 % (24-48); MEAN CORPUSCULAR HEMOGLOBIN 26 pg (25-35); MEAN CORPUSCULAR HGB CONC 33 g/dL (31-37); MEAN CORPUSCULAR VOLUME 78 fL (79-100); MONO # 0.7 x10^3/uL (0.0-1.1); MONO % 7 % (0-9); NEUT # 6.7 x10^3uL (1.8-7.7); NEUT % 65 % (31-73); PLATELET COUNT 378 x10^3/uL (140-400); RED BLOOD COUNT 4.75 x10^6/uL (3.50-5.40); RED CELL DISTRIBUTION WIDTH 15.1 % (11.5-14.5); WHITE BLOOD COUNT 10.3 x10^3/uL (4.0-11.0)
[2017-12-10 16:16] LABS: BILIRUBIN,URINE NEGATIVE (NEG); CLARITY,URINE CLEAR; COLOR,URINE AMBER; NITRITE,URINE NEGATIVE (NEG); PROTEIN,URINE NEGATIVE (NEG-TRACE)
[2017-12-10 16:19] LABS: RBC,URINE >40 /HPF (0-2); SQUAMOUS EPITHELIAL CELL,UR OCC /LPF
[2017-12-10 16:20] LABS: BACTERIA,URINE 0 /HPF (0-FEW)
--- NOTE | 2017-12-10 16:46 | RAD ---
Examination: Obstetric ultrasound less than 14 weeks HISTORY: History of vaginal bleeding COMPARISON: None available FINDINGS: The uterus measures 9.0 x 7.0 x 5.0 cm. The right ovary measures 2.8 x 2.2 x 1.8 cm. The left ovary measures 2.8 x 3.3 x 1.7 cm. No intrauterine gestational sac is identified. The endometrium measures 3.8 mm in diameter. Blood flow identified in the right and left ovaries. IMPRESSION: No evidence of intrauterine gestational sac. No obvious ectopic gestation identified on the visualized exam. Clinical correlation is suggested. Electronically signed by: Kervin Downey MD (12/10/2017 4:42 PM) [id number]
[2017-12-11 15:19] LABS: GC PROBE Negative (Negative)
== END 2017-12-10 18:09 | disposition home or self-care (01) ==
LOC: ER 15:34
DX: N93.9 Abnormal uterine and vaginal bleeding, unspecified (principal)
CPT/HCPCS: 36415; 76801; 76817; 81001; 81025; 84702; 85025; 87086; 87491; 87591; 99285; Q0111

== ENCOUNTER → 2018-10-04 | Outpatient (CLI) | payer OTHER ==
[~2018-10-04] MED LIST changes: +HYDR-3164 PO; -HYDR-971 PO; +OMEP20CA10 PO; -OMEP20CA9 PO
--- NOTE | 2018-10-04 09:23 | RAD ---
Indication: . Unsure of dates. Right pelvic pain. TECHNIQUE: Ultrasound OB greater than 14 weeks. COMPARISON: None FINDINGS: The uterus is anteverted and measures 10.7 x 5.6 x 6.6 cm. Nabothian cysts in the cervix. Left ovary measures 4.2 x 2.7 x 2.7 cm and shows evidence of blood flow. Right ovary is not visualized. Single intrauterine gestation sac is seen with yolk sac. pole is seen with crown-rump length measuring 0.4 cm corresponding to gestation age of 6 weeks 0 day. Cardiac activity seen in the rate of 118 bpm. Curvilinear hypoechoic area adjacent to the gestation sac measuring 0.8 x 0.3 x 0.2 cm suggests small subchorionic bleed. IMPRESSION: 1. Single live viable intrauterine corresponding to gestation age of 6 weeks 0 days and due date of 05/30/2019. 2. Small subchorionic bleed. Follow-up recommended. Electronically signed by: Elan Gutierrez DO (10/04/2018 9:20 AM) [facility]
== END | disposition home or self-care (01) ==
LOC: US 08:01
PROVIDERS: ATTEND Family Medicine
DX: O34.81 Maternal care for other abnormalities of pelvic organs, first trimester (principal); N88.8 Other specified noninflammatory disorders of cervix uteri; Z3A.01 Less than 8 weeks gestation of pregnancy
CPT/HCPCS: 76805; 76817

== ENCOUNTER → 2018-10-21 | Outpatient (CLI) | payer OTHER ==
[2018-10-21 11:03] LABS: BASO # 0.1 x10^3/uL (0.0-0.2); BASO % 1 % (0-3); EOS # 0.2 x10^3/uL (0.0-0.7); EOS % 3 % (0-3); HEMATOCRIT 40.7 % (36.0-47.0); HEMOGLOBIN 13.5 g/dL (12.0-15.5); LYMPH # 1.7 x10^3/uL (1.0-4.8); LYMPH % 22 % (24-48); MEAN CORPUSCULAR HEMOGLOBIN 27 pg (25-35); MEAN CORPUSCULAR HGB CONC 33 g/dL (31-37); MEAN CORPUSCULAR VOLUME 81 fL (79-100); MONO # 0.5 x10^3/uL (0.0-1.1); MONO % 7 % (0-9); NEUT % 67 % (31-73); PLATELET COUNT 293 x10^3/uL (140-400); RED BLOOD COUNT 5.02 x10^6/uL (3.50-5.40); RED CELL DISTRIBUTION WIDTH 15.4 % (11.5-14.5); WHITE BLOOD COUNT 7.5 x10^3/uL (4.0-11.0)
== END | disposition home or self-care (01) ==
LOC: LAB 10:32
PROVIDERS: ATTEND Obstetrics & Gynecology
DX: Z32.01 Encounter for pregnancy test, result positive (principal); O34.219 Maternal care for unspecified type scar from previous cesarean delivery
CPT/HCPCS: 36415; 85025; 86592; 86703; 86762; 86850; 86900; 86901; 87340

== ENCOUNTER → 2018-12-19 | Outpatient (CLI) | payer OTHER ==
--- NOTE | 2018-12-19 15:02 | RAD ---
EXAM: Obstetrics sonogram. HISTORY: Size and dates assessment. TECHNIQUE: Sonographic imaging of a gravid uterus was performed. COMPARISON: 10/04/2018. FINDINGS: There is a single intrauterine fetus in transverse presentation with a heart rate of 141 bpm. The cervix is closed and measures 8.6 cm in length. There is a three-vessel umbilical cord with normal insertion. There is a four-chamber heart. The stomach, kidneys, bladder, spine, brain, facial profile and extremities are unremarkable, with evaluation limited due to maternal body habitus and early gestational age. The amniotic fluid index is normal. There is a grade 0 anterior placenta without evidence of placenta previa. The umbilical cord systolic to diastolic ratios are normal. The biparietal diameter is 3.8 cm, corresponding with 17 weeks and 4 days. The head circumference is 13.6 cm, corresponding with 17 weeks and 1 day. The abdominal circumference is 12.1 cm, corresponding with 17 weeks and 6 days. The femoral length is 2.3 cm, corresponding with 17 weeks and 0 days. The estimated gestational age patient combined ultrasound measurements is 17 weeks and 3 days and the estimated due date is 05/26/2019. The estimated weight is 192 g. IMPRESSION: 1. Single intrauterine fetus with an estimated gestational age based on ultrasound measurements of 17 weeks and 3 days and normal heart rate of 141 bpm. 2. Suboptimal evaluation of the anatomy due to maternal body habitus and early gestational age. Short-term follow-up can be performed to complete a formal anatomy survey. Electronically signed by: Jamilah Meier MD (12/19/2018 2:59 PM) [place] [id number]
== END | disposition home or self-care (01) ==
LOC: US 15:25
PROVIDERS: ATTEND Obstetrics & Gynecology
DX: O26.842 Uterine size-date discrepancy, second trimester (principal); Z3A.17 17 weeks gestation of pregnancy
CPT/HCPCS: 76805

== ENCOUNTER → 2019-01-29 | Outpatient (CLI) | payer OTHER ==
[~2019-01-29] MED LIST changes: +OMEP-229 PO; -OMEP20CA10 PO
--- NOTE | 2019-01-29 14:04 | RAD ---
EXAM: Obstetrics sonogram. HISTORY: Size and dates discrepancy. TECHNIQUE: Sonographic imaging of a gravid uterus was performed. COMPARISON: 12/19/2018. FINDINGS: There is a single intrauterine fetus in cephalic presentation with a normal heart rate of 150 bpm. There is a three-vessel umbilical cord with normal insertion. There is a four-chamber heart. The stomach, kidneys, bladder, brain, spine, extremities and facial profile are unremarkable. There is a grade 1 posterior placenta without evidence of placenta previa. There is normal amniotic fluid index. The cervix is closed and measures 6.0 cm in length. The biparietal diameter is 5.29 cm, corresponding with 20 weeks and 0 days. The head circumference is 21.50 cm, corresponding with 23 weeks and 4 days. The abdominal circumference is 18.67 cm, corresponding with 23 weeks and 3 days. The femoral length is 4.29 cm, corresponding with 24 weeks and 0 days. The estimated gestational age patient combined ultrasound measurements is 23 weeks and 2 days and the estimated due date is 05/26/2019. The estimated weight is 611 g. This at the 42nd percentile for a gestational age of 23 weeks and 4 days based on LMP. IMPRESSION: 1. Single intrauterine fetus with an estimated gestational age of 23 weeks and 2 days. 2. Unremarkable anatomy survey. Electronically signed by: Jamilah Meier MD (01/29/2019 2:02 PM) [place] [id number]
== END | disposition home or self-care (01) ==
LOC: US 06:51
PROVIDERS: ATTEND Obstetrics & Gynecology
DX: O26.842 Uterine size-date discrepancy, second trimester (principal); Z3A.23 23 weeks gestation of pregnancy
CPT/HCPCS: 76805

== ENCOUNTER 2019-05-18 10:48 | Observation (INO) | payer OTHER ==
[~2019-05-18 10:48] MED LIST changes: -OMEP-229 PO; +OMEP20CA16 PO
[2019-05-18] MEDS ORDERED: IV RINGERS,LACTATED 1000ML 1,000 ML IV PRN (12:15)
[2019-05-18 12:18] LABS: BILIRUBIN,URINE SMALL (NEG); CLARITY,URINE CLEAR; COLOR,URINE AMBER; NITRITE,URINE NEGATIVE (NEG); PROTEIN,URINE 30 mg/dL (NEG-TRACE)
[2019-05-18 12:38] LABS: BACTERIA,URINE FEW /HPF (0-FEW); RBC,URINE OCC /HPF (0-2); SQUAMOUS EPITHELIAL CELL,UR MANY /LPF
== END 2019-05-18 13:51 | disposition home or self-care (01) ==
LOC: 3 SO LND 10:48
PROVIDERS: ADMIT Obstetrics & Gynecology; ATTEND Obstetrics & Gynecology
DX: O99.89 Other specified diseases and conditions complicating pregnancy, childbirth and the puerperium (principal); M54.9 Dorsalgia, unspecified; O26.893 Other specified pregnancy related conditions, third trimester; N89.8 Other specified noninflammatory disorders of vagina; Z3A.39 39 weeks gestation of pregnancy
CPT/HCPCS: 81001; 87086; G0378; G0379

== ENCOUNTER 2019-05-19 05:50 | Inpatient (IN) | payer OTHER ==
[2019-05-19] VITALS (7 sets, daily range): BP systolic 94–110; BP diastolic 39–68
[~2019-05-19] VITALS: Ht 154.9 cm; Wt 123.8 kg
[2019-05-19] MEDS ORDERED: BUTORPHANOL 2 MG/ML VIAL. IVP PRN (06:00)
[2019-05-19] MEDS ORDERED: MAG HYDROX/ALUMINUM HYD/SIMETH 30 ML ORAL.SUSP PO PRN ×2 (06:00→13:30)
[2019-05-19] MEDS ORDERED: 0.9 % SODIUM CHLORIDE 10 ML DISP.SYRIN. IV PRN ×2 (06:00→13:30)
[2019-05-19] MEDS ORDERED: OXYTOCIN 30 UNIT/500 ML PREMIX 500 ML IV PRN ×3 (06:00→13:30)
[2019-05-19] MEDS ORDERED: TERBUTALINE 1 MG/ML VIAL. SQ PRN (06:00)
[2019-05-19] MEDS ORDERED: LIDOCAINE 1% PF 30 ML VIAL. INJ PRN (06:00)
[2019-05-19] MEDS ORDERED: fentaNYL PF VIAL 100 MCG/2 ML VIAL IVP PRN (06:00)
[2019-05-19] MEDS ORDERED: PENICILLIN G K 5,000,000 UNIT in IV DEXTROSE 5% 100ML 100 ML IV ONE (06:00)
[2019-05-19] MEDS ORDERED: ONDANSETRON PF 4 MG/2 ML VIAL. IVP PRN (06:00)
[2019-05-19] MEDS ORDERED: ACETAMINOPHEN 325 MG TABLET. PO PRN (06:00)
[2019-05-19 07:01] LABS: BASO # 0.1 x10^3/uL (0.0-0.2); BASO % 1 % (0-3); EOS # 0.2 x10^3/uL (0.0-0.7); EOS % 2 % (0-3); HEMATOCRIT 36.2 % (36.0-47.0); HEMOGLOBIN 11.9 g/dL (12.0-15.5); LYMPH % 16 % (24-48); MEAN CORPUSCULAR HEMOGLOBIN 28 pg (25-35); MEAN CORPUSCULAR HGB CONC 33 g/dL (31-37); MEAN CORPUSCULAR VOLUME 84 fL (79-100); MONO % 9 % (0-9); NEUT # 8.9 x10^3/uL (1.8-7.7); NEUT % 73 % (31-73); PLATELET COUNT 279 x10^3/uL (140-400); RED BLOOD COUNT 4.33 x10^6/uL (3.50-5.40); RED CELL DISTRIBUTION WIDTH 15.6 % (11.5-14.5); WHITE BLOOD COUNT 12.1 x10^3/uL (4.0-11.0)
[2019-05-19] MEDS: IV RINGERS,LACTATED 1000ML 1,000 ML IV SCH ×5 (07:23→23:33)
--- NOTE | 2019-05-19 08:42 | RAD ---
Limited OB ultrasound greater than 14 weeks 05/19/2019 CLINICAL HISTORY: Near-term . Assessment of position was requested. TECHNIQUE: A real-time ultrasound examination of the gravid uterus to establish position was performed. Multiple images were obtained. FINDINGS: There is a single living IUP. The fetus is in a breech position. The head is to the maternal right. cardiac and somatic activity is seen. The heart rate is 133 bpm. The placenta is in a fundal position. No abnormality is seen. The amniotic fluid volume is within normal limits. The R[place] measures 14.6 cm. biometry was not performed. Detailed evaluation of anatomy was not performed. IMPRESSION: Single living IUP. The fetus is in a breech position. Electronically signed by: Greg Moore MD (05/19/2019 8:39 AM) [id number]
[2019-05-19] MEDS ORDERED: ceFAZolin SODIUM 3 GM in IV DEXTROSE 5% 100ML 100 ML IV ONE (08:45)
[2019-05-19] MEDS: PENICILLIN G K 2,500,000 UNIT in IV DEXTROSE 5% 50 ML IV SCH ×4 (10:00→21:50)
--- NOTE | 2019-05-19 10:01 | PDOC1 ---
OB - History Hx of Present Care: Good Care Ultrasounds: Normal mid trimester US Obstetrical Complications: None Medical Complications: None Past Family/Social History * Past Medical, Surgical, Family and Obstetric Histories reviewed from chart. Rubella: Immune RPR/VDRL: Negative GBS Status: Negative HBsAG: Negative OB - Chief Complaint & HPI Date of Admission: Date of Admission: May 19, 2019 at 05:50 Chief Complaint/History : 6 Para: 5 EGA: 39 Reason for admission: induction of labor Indication for : desires repeat , malpresentation (breech) Admission Nurse Assessment Rev: Yes OB - Admission Exam Physical Exam Vitals: VS - Last 72 Hours, by Label Date Time Temp Pulse Resp B/P (MAP) Pulse Ox O2 Delivery O2 Flow Rate FiO2 05/19/19 07:05 98.9 123 18 110/68 (82) 98.9 HEENT: Normal Heart: Regular Rate Lungs: Clear Abdomen: Gravid, Non tender, Soft Extremities: Edema Reflexes: Normal Cervical Dilatation: 2cm Effacement: 75% Station: Ballotable Membranes: Intact Heart Rate: Normal Accelerations: Accelerations Present Decelerations: No decelerations Contractions on Admission: >10 Minutes Apart Intensity: Mild Text A: 39 wks IUP Previous c/s Previous Breech P: Admit for repeat c/s. VIPUL OCONNOR Jr, MD May 19, 2019 10:00
[2019-05-19] MEDS ORDERED: fentaNYL PF VIAL 100 MCG/2 ML VIAL ONE (11:52)
[2019-05-19] MEDS ORDERED: ONDANSETRON PF 4 MG/2 ML VIAL. ONE (11:52)
[2019-05-19] MEDS ORDERED: OXYTOCIN 10 UNIT/ML VIAL. ONE (11:52)
[2019-05-19] MEDS ORDERED: MORPHINE PF 10 MG/10 ML AMPUL. ONE (11:52)
[2019-05-19] MEDS ORDERED: ePHEDrine PF IN SALINE 50 MG/10 ML SYRINGE. IV ONE (11:52)
[2019-05-19] MEDS ORDERED: PHENYLEPHRINE in 0.9% NACL PF 1 MG/10 ML SYRINGE. IV ONE (12:24)
--- NOTE | 2019-05-19 13:20 | PDOC4 ---
OB Operative Note Date: May 19, 2019 PRE OP DIAGNOSIS: Previoujs C- section (Desires BTL) POST OP DIAGNOSIS: Other (Same) OPERATION PERFORMED: R KTSC (and BTL) Surgeon Dr. Fuentes Cloud Systems Administrator Dr. Tovar Anesthesia: Regional Blood Loss 800 ml Specimen placenta and infant OB Findings: Position (Vertex), Sex (Female), (8/9), Weight (8 Lb 5 oz) Complications none Additional Remarks pt. VIPUL Garcia Jr, MD May 19, 2019 13:20
[2019-05-19] MEDS ORDERED: IBUPROFEN 400 MG TABLET. PO PRN (13:30)
[2019-05-19] MEDS ORDERED: SIMETHICONE 80 MG TAB.CHEW PO PRN (13:30)
[2019-05-19] MEDS ORDERED: ZOLPIDEM 5 MG TABLET. PO PRN (13:30)
[2019-05-19] MEDS ORDERED: ONDANSETRON PF 4 MG/2 ML VIAL. IV PRN (13:30)
[2019-05-19] MEDS ORDERED: diphenhydrAMINE ORAL ELIXIR 12.5 MG/5 ML ML PO PRN (13:30)
--- NOTE | 2019-05-19 13:37 | OP ---
DATE OF SURGERY: 05/19/2019 PREOPERATIVE DIAGNOSES: 1. A 39 weeks' intrauterine . 2. Previous section. 3. Desires bilateral tubal ligation. 4. Unstable lie. POSTOPERATIVE DIAGNOSES: 1. A 39 weeks' intrauterine . 2. Previous section. 3. Desires bilateral tubal ligation. 4. Unstable lie. PROCEDURE: Repeat low transverse section and bilateral tubal ligation via modified [place] method. SURGEON: Vipul Fuentes MD TRANSIT MIX OPERATOR: Dr. Tovar. ANESTHESIA: Spinal. ESTIMATED BLOOD LOSS: 800 mL. COMPLICATIONS: None. FINDINGS: Viable female infant, Apgars 8 and 9, weight 8 pounds 5 ounces. Three-vessel cord placenta delivered manually intact. SUMMARY: A 33-year-old female with previous , presented for induction of labor. She was found to have unstable lie via sono as well. Ultrasound also indicated possible breech. The patient desired tubal ligation for sterilization. She was counseled on the risks, benefits and expectations as well as the failure rate and voiced clear understanding to proceed. The patient also counseled on the risk for repeat section and voiced clear understanding to proceed. DESCRIPTION OF PROCEDURE: The patient was taken to surgery suite and placed in dorsal supine position. She was prepped with ChloraPrep and draped in sterile fashion. After adequate anesthesia, Pfannenstiel skin incision was made with scalpel down to and through the fascia. Fascia was extended laterally using curved Guzman scissors. The superior edge of fascia was grasped with two Renan clamps and dissected free of the abdominal rectus muscles using blunt dissection along with Bovie cautery. Same process took place inferiorly. The abdominal rectus muscle dissected bluntly at the midline. The peritoneum was grasped with 2 hemostats and entered sharply with Metzenbaum scissors. This incision was extended superiorly as well as inferiorly. The David ring retractor was placed. A bladder flap was created using sharp dissection with Metzenbaum scissors and [place]ian pickups. A low transverse hysterotomy incision was made with a scalpel down to and through the amniotic sac. Hysterotomy incision was extended laterally and superiorly digitally. With the aid of fundal pressure, the infant's head was delivered in a smooth atraumatic manner. With additional fundal pressure, the anterior shoulder was delivered followed by posterior shoulder and the rest of female was delivered. The was suctioned with bulb syringe orally and nasally. Umbilical cord clamped twice and cut and viable female infant was handed to waiting nursing staff. Umbilical cord blood was then obtained. Three-vessel cord placenta was delivered manually intact. The uterus was then exteriorized and cleared of clot and debris with a moist lap. Hysterotomy incision was reapproximated using #1 Vicryl suture in running locked fashion and imbricated layer of #1 Vicryl suture in running fashion was utilized for better hemostasis. Uterus palpated firm. The right fallopian tube had been removed previously for an ectopic , left fallopian tube was visualized appeared normal, was grasped with a Wendy, undermined in the mesosalpinx with Bovie cautery. Proximal and distal ends of the fallopian tube were tied with plain gut suture and the mid section of fallopian tube was removed with aid of Metzenbaum scissors. Two telescoping ends were visualized and hemostatic. Posterior cul-de-sac was cleared of clot and debris with moist lap. The uterus was then returned to the abdomen. The pericolic gutters were cleared of clot and debris with moist lap. The hysterotomy incision was reviewed and was hemostatic. The David ring retractor was removed. Peritoneum was reapproximated using #1 Vicryl suture in running fashion. Abdominal rectus muscles were reapproximated using #1 Vicryl suture in running fashion. Fascia was reapproximated using Stratafix in running fashion. Subcutaneous space was reapproximated using #1 Vicryl suture in running fashion. Skin was reapproximated using 4-0 Vicryl suture in subcuticular manner. Prevena wound VAC was placed. The patient tolerated the procedure well and was taken to recovery room in stable condition. Sponge and needle count correct x 3. VIPUL FUENTES MD DR: YORDY/aditi JOB#: [id number] / [id number]
[2019-05-19] MEDS: KETOROLAC 30 MG/ML VIAL. IV PRN ×2 (14:59→22:47)
[2019-05-19] MEDS: FERROUS SULFATE 325 MG TABLET. PO SCH (17:00)
[2019-05-20] MEDS: PENICILLIN G K 2,500,000 UNIT in IV DEXTROSE 5% 50 ML IV SCH ×5 (02:00→18:00)
[2019-05-20] MEDS: IV RINGERS,LACTATED 1000ML 1,000 ML IV SCH (03:11)
[2019-05-20 05:35] VITALS: BP 112/74
[2019-05-20] MEDS: oxyCODONE/APAP 5/325 1 TAB TABLET PO PRN ×4 (06:24→22:37)
[2019-05-20] MEDS: IBUPROFEN 400 MG TABLET. PO PRN ×3 (06:24→22:37)
[2019-05-20] MEDS: DOCUSATE SODIUM 100 MG CAPSULE. PO PRN ×3 (06:24→17:05)
[2019-05-20 06:59] LABS: BASO % 0 % (0-3); EOS # 0.2 x10^3/uL (0.0-0.7); EOS % 2 % (0-3); HEMATOCRIT 29.8 % (36.0-47.0); HEMOGLOBIN 9.8 g/dL (12.0-15.5); LYMPH # 1.8 x10^3/uL (1.0-4.8); LYMPH % 20 % (24-48); MEAN CORPUSCULAR HEMOGLOBIN 28 pg (25-35); MEAN CORPUSCULAR HGB CONC 33 g/dL (31-37); MEAN CORPUSCULAR VOLUME 84 fL (79-100); MONO # 0.9 x10^3/uL (0.0-1.1); MONO % 10 % (0-9); NEUT % 67 % (31-73); PLATELET COUNT 224 x10^3/uL (140-400); RED BLOOD COUNT 3.53 x10^6/uL (3.50-5.40); WHITE BLOOD COUNT 8.9 x10^3/uL (4.0-11.0)
--- NOTE | 2019-05-20 08:25 | PDOC ---
OB Progress Note Date of Service 05/20/19 Time of Evaluation 0825 Notes Pt. feeling well. No complaints. Pain controlled. Lab Laboratory Tests Test 05/19/19 06:20 05/20/19 06:20 White Blood Count 12.1 x10^3/uL (4.0-11.0) 8.9 x10^3/uL (4.0-11.0) Red Blood Count 4.33 x10^6/uL (3.50-5.40) 3.53 x10^6/uL (3.50-5.40) Hemoglobin 11.9 g/dL (12.0-15.5) 9.8 g/dL (12.0-15.5) Hematocrit 36.2 % (36.0-47.0) 29.8 % (36.0-47.0) Mean Corpuscular Volume 84 fL (79-100) 84 fL (79-100) Mean Corpuscular Hemoglobin 28 pg (25-35) 28 pg (25-35) Mean Corpuscular Hemoglobin Concent 33 g/dL (31-37) 33 g/dL (31-37) Red Cell Distribution Width 15.6 % (11.5-14.5) 15.0 % (11.5-14.5) Platelet Count 279 x10^3/uL (140-400) 224 x10^3/uL (140-400) Neutrophils (%) (Auto) 73 % (31-73) 67 % (31-73) Lymphocytes (%) (Auto) 16 % (24-48) 20 % (24-48) Monocytes (%) (Auto) 9 % (0-9) 10 % (0-9) Eosinophils (%) (Auto) 2 % (0-3) 2 % (0-3) Basophils (%) (Auto) 1 % (0-3) 0 % (0-3) Neutrophils # (Auto) 8.9 x10^3/uL (1.8-7.7) 6.0 x10^3/uL (1.8-7.7) Lymphocytes # (Auto) 2.0 x10^3/uL (1.0-4.8) 1.8 x10^3/uL (1.0-4.8) Monocytes # (Auto) 1.0 x10^3/uL (0.0-1.1) 0.9 x10^3/uL (0.0-1.1) Eosinophils # (Auto) 0.2 x10^3/uL (0.0-0.7) 0.2 x10^3/uL (0.0-0.7) Basophils # (Auto) 0.1 x10^3/uL (0.0-0.2) 0.0 x10^3/uL (0.0-0.2) Treponema pallidum Antibody Nonreactive (Nonreactive) Laboratory Tests Test 05/20/19 06:20 White Blood Count 8.9 x10^3/uL (4.0-11.0) Red Blood Count 3.53 x10^6/uL (3.50-5.40) Hemoglobin 9.8 g/dL (12.0-15.5) Hematocrit 29.8 % (36.0-47.0) Mean Corpuscular Volume 84 fL (79-100) Mean Corpuscular Hemoglobin 28 pg (25-35) Mean Corpuscular Hemoglobin Concent 33 g/dL (31-37) Red Cell Distribution Width 15.0 % (11.5-14.5) Platelet Count 224 x10^3/uL (140-400) Neutrophils (%) (Auto) 67 % (31-73) Lymphocytes (%) (Auto) 20 % (24-48) Monocytes (%) (Auto) 10 % (0-9) Eosinophils (%) (Auto) 2 % (0-3) Basophils (%) (Auto) 0 % (0-3) Neutrophils # (Auto) 6.0 x10^3/uL (1.8-7.7) Lymphocytes # (Auto) 1.8 x10^3/uL (1.0-4.8) Monocytes # (Auto) 0.9 x10^3/uL (0.0-1.1) Eosinophils # (Auto) 0.2 x10^3/uL (0.0-0.7) Basophils # (Auto) 0.0 x10^3/uL (0.0-0.2) Medications Current Medications Sodium Chloride (Normal Saline Flush) 3 ml QSHIFT PRN IV AFTER MEDS AND BLOOD DRAWS; Start 05/19/19 at 06:00 Ringer's Solution 1,000 ml @ 125 mls/hr Q8H IV Last administered on 05/20/19at 03:11; Start 05/19/19 at 06:00 Butorphanol Tartrate (Stadol) 2 mg PRN Q1HR PRN IVP Severe labor pain; Start 05/19/19 at 06:00 Fentanyl Citrate (Fentanyl 2ml Vial) 100 mcg PRN Q20MIN PRN IVP Labor pain; St art 05/19/19 at 06:00 Acetaminophen (Tylenol) 650 mg PRN Q6HRS PRN PO MILD PAIN / TEMP; Start 05/19/19 at 06:00 Ondansetron HCl (Zofran) 4 mg PRN Q4HRS PRN IVP NAUSEA/VOMITING; Start 05/19/19 at 06:00 Al Hydroxide/Mg Hydroxide (Mylanta Plus Xs) 30 ml PRN Q4HRS PRN PO HEARTBURN / GAS; Start 05/19/19 at 06:00 Terbutaline Sulfate (Brethine) 0.25 mg 1X PRN PRN SQ SEE COMMENTS; Start 05/19/19 at 06:00; Stop 05/20/19 at 05:59; Status DC Lidocaine HCl (Xylocaine 1% Pf 30ml Vial) 30 ml 1X PRN PRN INJ SEE COMMENTS; Start 05/19/19 at 06:00; Stop 05/21/19 at 05:59 Oxytocin/Sodium Chloride 500 ml @ 0 mls/hr CONT PRN IV SEE I/O RECORD Last administered on 05/19/19at 07:40; Start 05/19/19 at 06:00 Oxytocin/Sodium Chloride 500 ml @ 0 mls/hr CONT PRN PRN IV Post delivery bleeding; Start 05/19/19 at 06:00 Ibuprofen (Motrin) 800 mg PRN Q6HRS PRN PO INFLAMMATION Last administered on 05/20/19at 06:24; Start 05/19/19 at 06:00 Penicillin G Potassium 7089263 unit/Dextrose 100 ml @ 100 mls/hr 1X ONCE IV Last administered on 05/19/19at 07:24; Start 05/19/19 at 06:00; Stop 05/19/19 at 06:59; Status DC Penicillin G Potassium 0299222 unit/Dextrose 50 ml @ 100 mls/hr Q4H IV ; Start 05/19/19 at 10:00 Cefazolin Sodium 3 gm/Dextrose 100 ml @ 200 mls/hr 1X ONCE IV ; Start 05/19/19 at 08:45; Stop 05/19/19 at 09:14; Status DC Ondansetron HCl (Zofran) 4 mg STK-MED ONCE .ROUTE ; Start 05/19/19 at 11:52; Stop 05/19/19 at 11:52; Status DC Oxytocin (Pitocin) 10 unit STK-MED ONCE .ROUTE ; Start 05/19/19 at 11:52; Stop 05/19/19 at 11:52; Status DC Ephedrine Sulfate (ePHEDrine PF IN SALINE SYRINGE) 50 mg STK-MED ONCE IV ; Start 05/19/19 at 11:52; Stop 05/19/19 at 11:52; Status DC Morphine Sulfate (Morphine Preservative Free) 10 mg STK-MED ONCE .ROUTE ; Start 05/19/19 at 11:52; Stop 05/19/19 at 11:53; Status DC Fentanyl Citrate (Fentanyl 2ml Vial) 100 mcg STK-MED ONCE .ROUTE ; Start 05/19/19 at 11:52; Stop 05/19/19 at 11:53; Status DC Phenylephrine HCl (PHENYLEPHRINE in 0.9% NACL PF) 1 mg STK-MED ONCE IV ; Start 05/19/19 at 12:24; Stop 05/19/19 at 12:24; Status DC Sodium Chloride (Normal Saline Flush) 3 ml QSHIFT PRN IV AFTER MEDS AND BLOOD DRAWS; Start 05/19/19 at 13:30 Oxytocin/Sodium Chloride 500 ml @ 125 mls/hr CONT PRN IV EXCESSIVE POST- BLEEDING; Start 05/19/19 at 13:30; Stop 05/19/19 at 21:29; Status DC Ibuprofen (Motrin) 800 mg PRN Q8HRS PRN PO INFLAMMATION; Start 05/19/19 at 13:30; Status UNV Ondansetron HCl (Zofran) 4 mg PRN Q6HRS PRN IV NAUSEA/VOMITING; Start 05/19/19 at 13:30; Status UNV Docusate Sodium (Colace) 100 mg PRN BID PRN PO CONSTIPATION Last administered on 05/20/19at 06:24; Start 05/19/19 at 13:30 Al Hydroxide/Mg Hydroxide (Mylanta Plus Xs) 30 ml PRN Q4HRS PRN PO HEARTBURN / GAS; Start 05/19/19 at 13:30; Status UNV Simethicone (Gas-X) 80 mg PRN AFTMEALHC PRN PO GAS / BLOATING; Start 05/19/19 at 13:30 Diphenhydramine HCl (Benadryl Oral Elixir) 12.5 mg PRN Q6HRS PRN PO ITCHING; Start 05/19/19 at 13:30 Ferrous Sulfate (Feosol) 325 mg BIDWMEALS PO ; Start 05/19/19 at 17:00 Zolpidem Tartrate (Ambien) 5 mg PRN QHS PRN PO INSOMNIA, MAY REPEAT X1; Start 05/19/19 at 13:30 Oxycodone/ Acetaminophen (Percocet 5/325) 2 tab PRN Q4HRS PRN PO MODERATE PAIN, SEVERE PAIN Last administered on 05/20/19at 06:24; Start 05/19/19 at 13:30 Ketorolac Tromethamine (Toradol 30mg Vial) 30 mg PRN Q6HRS PRN IV PAIN Last administered on 05/19/19at 22:47; Start 05/19/19 at 13:30; Stop 05/24/19 at 13:29 Multivitamins (Thera M Plus) 1 tab DAILY PO ; Start 05/20/19 at 09:00 Active Scripts Active Omeprazole 20 Mg Capsule.dr 20 Mg PO DAILY 30 Days [place] 5-325 Tablet (Acetaminophen/Hydrocodone Bitart) 1 Each Tablet 1 Tab PO TID Doxycycline Hyclate 100 Mg Tablet 1 Tab PO BID Bactroban Cream (Mupirocin) 15 Gm Cream..g. 1 Nina TP TID Naprosyn (Naproxen) 500 Mg Tablet 1 Tab PO BID [place] 5-325 Tablet (Acetaminophen/Hydrocodone Bitart) 1 Each Tablet 1 Tab PO PRN Q6HRS PRN Exam Abd: soft, mild tenderness, fundus firm Prevena in palce. Assessment POD#1 s/p repeat c/s and BTL Plan of Care: Continue current Tx, Mgmt VIPUL OCONNOR Jr, MD May 20, 2019 08:25
[2019-05-20] MEDS: FERROUS SULFATE 325 MG TABLET. PO SCH ×2 (08:32→17:05)
[2019-05-20] MEDS: MULTIVITAMIN with MINERAL TABLET. PO SCH (08:32)
[2019-05-20 09:57] VITALS: BP 106/56
[2019-05-20 12:48] VITALS: BP 107/59
[2019-05-20 18:05] VITALS: BP 112/47
[2019-05-21 00:20] VITALS: BP 110/74
[2019-05-21] MEDS: DOCUSATE SODIUM 100 MG CAPSULE. PO PRN (04:38)
[2019-05-21] MEDS: IBUPROFEN 400 MG TABLET. PO PRN ×2 (04:38→14:22)
[2019-05-21] MEDS: oxyCODONE/APAP 5/325 1 TAB TABLET PO PRN ×3 (04:39→16:25)
[2019-05-21 04:45] VITALS: BP 109/69
--- NOTE | 2019-05-21 08:57 | PDOC3 ---
OB DISCHARGE SUMMARY DATE OF ADMISSION: 05/19/19 DATE OF DISCHARGE: 05/21/19 REASON FOR ADMISSION: section INTRAPARTUM PROCEDURES: : Low Cerv Trans PROCEDURES: Tubal Ligation DISCHARGE DIAGNOSIS: Term Delivered DISCHARGE INFORMATION: Activity (ad linda), Diet (regular), Instructions (pelvic rest x 6 wks, no driving x 2 wks, no lifting > 20 lbs. x 6 wks) HOSPITAL COURSE Term gestation delivered via repeat section and tubal ligation without complications. VIPUL OCONNOR Jr, MD May 21, 2019 08:57
[2019-05-21] MEDS ORDERED: DOCU-153 PO (08:59)
[2019-05-21] MEDS ORDERED: IBUP-1027 PO (08:59)
[2019-05-21] MEDS: FERROUS SULFATE 325 MG TABLET. PO SCH (08:59)
[2019-05-21] MEDS: MULTIVITAMIN with MINERAL TABLET. PO SCH (08:59)
[2019-05-21] MEDS ORDERED: OXYC1TAB15 PO (08:59)
--- NOTE | 2019-05-21 08:59 | DISCH ---
DISCHARGE INSTRUCTIONS Condition on Discharge Condition on Discharge: Stable Activity After Discharge Activity Instructions for Disc: Activity as tolerated Lifting Instructions after Dis: No heavy lifting Driving Instructions after Dis: No driving for 2 weeks Diet after Discharge Diet after Discharge: Regular Contacting the DRRosemary after DC Call your doctor for: Concerns you may have Follow-Up Follow up with: Dr. Fuentes in 2 wks VIPUL FUENTES Jr, MD May 21, 2019 08:59
[2019-05-21 10:00] VITALS: BP 106/52
--- NOTE | 2019-05-21 17:06 | PATHOLOGY ---
[facility] Accession Number: [id number] . 01 Material submitted: . fallopian tube - LEFT FALLOPIAN TUBE. Modifiers: left . 01 Clinical history: . Repeat . 02 Diagnosis: Fallopian tube, left tubal ligation: - Segment of fallopian tube confirmed, with focal subserosal stromal decidual change and cystic [place] rest. (JPM/db; 05/21/2019) LBQ 05/21/2019 1032 Local . 02 Electronically signed: . Francesco Anaya MD, Pathologist NPI- [id number] . 01 Gross description: . The specimen is received in formalin, labeled "Paola Smelts, L tube". Received is a non-fimbriated fallopian tube measuring 1.0 cm in length by 0.5 cm in diameter. The serosal surface is pink-galvez in appearance. Sectioning reveals a pinpoint lumen. The specimen is submitted entirely in cassette A1. (CAA; 05/20/2019) QA/[facility] 05/20/2019 1606 Local . 02 Pathologist provided ICD-10: O82 . 02 CPT . 980467 Specimen Comment: A courtesy copy of this report has been sent to [phone], [phone] Specimen Comment: [id number] Specimen Comment: Report sent to / DR BAIRD Performed at: 01 [facility] [address] [facility] [address], [place] [id number] MD Eder Frias MD Phone: [phone] Performed at: 02 [facility] [address] [place], [place] [id number] MD Francesco Anaya MD Phone: [phone]
[2019-05-21 18:35] VITALS: BP 119/74
== END 2019-05-21 20:00 | disposition home or self-care (01) | DRG 785 ==
LOC: 3 SO LND 05:50 → 3 NORTH 16:45
PROVIDERS: ADMIT Obstetrics & Gynecology; ATTEND Obstetrics & Gynecology
PROC: 10D00Z1 Extraction of Products of Conception, Low, Open Approach (ICD-10-PCS; principal; 2019-05-19)
PROC: 0UB60ZZ Excision of Left Fallopian Tube, Open Approach (ICD-10-PCS; 2019-05-19)
DX: O34.211 Maternal care for low transverse scar from previous cesarean delivery (principal); O32.0XX0 Maternal care for unstable lie, not applicable or unspecified; Z3A.39 39 weeks gestation of pregnancy; Z37.0 Single live birth; Z30.2 Encounter for sterilization
CPT/HCPCS: 36415; 76805; 85025; 86592; 86850; 86900; 86901; 88302; J0171; J1885; J2274; J2370; J2405; J2540; J2590; J3010; J7060; J7120; G0378

== ENCOUNTER 2019-05-22 10:02 | Emergency (ER) | payer OTHER ==
[~2019-05-22] VITALS: Ht 154.9 cm; Wt 124.0 kg
[~2019-05-22 10:02] MED LIST changes: +DOCU-153 PO; +IBUP-1027 PO; +OXYC1TAB15 PO
[2019-05-22 10:59] VITALS: BP 99/54
[2019-05-22] MEDS ORDERED: oxyCODONE/APAP 5/325 1 TAB TABLET PO ONE (11:30)
--- NOTE | 2019-05-22 11:39 | RAD ---
Left lower extremity venous doppler ultrasound Indication: Left leg pain, May 18. Technique: Color Doppler, grayscale, and spectral waveform analysis is used to evaluate the left femoral and popliteal veins. Findings: No evidence of deep venous thrombosis. Normal response to augmentation, normal compressibility and normal phasicity is demonstrated. Visualized calf veins are patent. Left peroneal vein is not well visualized. Irregular hypoechoic region identified in the left popliteal fossa, correlating with an area of visible bruising. This does not demonstrate vascularity. Measures 3.0 x 1.4 x 1.4 cm. Impression: 1. Negative for deep venous thrombosis. 2. Irregular nonvascular hypoechoic collection in the popliteal fossa, may represent a hematoma. Recommend short-term follow-up ultrasound of the popliteal fossa, in about one month, to document that this resolves. Electronically signed by: Brent Carballo MD (05/22/2019 11:36 AM) [id number]
--- NOTE | 2019-05-22 12:01 | PHYS DOC ---
Past Medical History Past Medical History: Ectopic Past Surgical History: , Oophorectomy Additional Past Surgical Histo: RUPTURED ECTOPIC Smoking Status: Current Every Day Smoker Alcohol Use: Occasionally Drug Use: None Adult General Chief Complaint Chief Complaint: POST-OP PROBLEM HPI HPI Patient is a 34 year old female with history of ectopic and 4 days ago and morbid obesity who presents with complaining of leg bruise. Patient states she had a with wound VAC placement 3 days ago without problem and this morning started as the area of ecchymosis in medial of left upper leg in knee area without pain, focal neuro deficit, fever or chills, shortness of breath, known injury. Patient denies history of DVT and PE. Review of Systems Review of Systems Constitutional: Denies fever or chills [] Eyes: Denies change in visual acuity, redness, or eye pain [] HENT: Denies nasal congestion or sore throat [] Respiratory: Denies cough or shortness of breath [] Cardiovascular: No additional information not addressed in HPI [] GI: Denies abdominal pain, nausea, vomiting, bloody stools or diarrhea [] : Denies dysuria or hematuria [] Musculoskeletal: Denies back pain or joint pain [] Integument: Denies rash, reports ecchymosis Neurologic: Denies headache, focal weakness or sensory changes [] Endocrine: Denies polyuria or polydipsia [] All other systems were reviewed and found to be within normal limits, except as documented in this note. Current Medications Current Medications Current Medications Medications (Trade) Dose Ordered Sig/Frank Start Time Stop Time Status Last Admin Dose Admin Oxycodone/ Acetaminophen (Percocet 5/325) 1 tab 1X ONCE 05/22/19 11:30 05/22/19 11:31 DC 05/22/19 11:33 1 TAB Allergies Allergies Allergies Coded Allergies Type Severity Reaction Last Updated Verified No Known Drug Allergies 05/28/14 No Physical Exam Physical Exam Constitutional: Well developed, well nourished, no acute distress, non-toxic appearance. [] HENT: Normocephalic, atraumatic. Eyes: PERRLA, EOMI, conjunctiva normal, no discharge. [] Neck: Normal range of motion, no tenderness, supple, no stridor. [] Cardiovascular:Heart rate regular rhythm, no murmur [] Lungs & Thorax: Bilateral breath sounds clear to auscultation [] Abdomen: Bowel sounds normal, soft, no tenderness, no masses, no pulsatile masses. incision with covering with dressing with wound VAC in place without tenderness Skin: Warm, dry, no erythema, no rash. [] Back: No tenderness, no CVA tenderness. [] Extremities: 5 x 5 cm ecchymosis of left medial side of knee without calf tenderness or neurovascular deficit, no tenderness, no cyanosis, no clubbing, ROM intact, no edema. [] Neurologic: Alert and oriented X 3, no focal deficits noted. [] Psychologic: Affect normal, judgement normal, mood normal. [] Current Patient Data Vital Signs Vital Signs Date Time Temp Pulse Resp B/P (MAP) Pulse Ox O2 Delivery O2 Flow Rate FiO2 05/22/19 10:59 61 18 94 05/22/19 10:15 98.5 113/67 (82) Room Air 98.5 EKG EKG [] Radiology/Procedures Radiology/Procedures [facility] [address] [place] [address] IMAGING REPORT Signed PATIENT: EDSON THOMAS ACCOUNT: [id number] : 1985 LOCATION: ER AGE: 34 SEX: F EXAM STATUS: REG ER ORD. PHYSICIAN: BERRY WANG MD REASON: Ecchymosis of left leg history of present PROCEDURE: VENOUS LOWER EXTREMITY LEFT Left lower extremity venous doppler ultrasound Indication: Left leg pain, May 18. Technique: Color Doppler, grayscale, and spectral waveform analysis is used to evaluate the left femoral and popliteal veins. Findings: No evidence of deep venous thrombosis. Normal response to augmentation, normal compressibility and normal phasicity is demonstrated. Visualized calf veins are patent. Left peroneal vein is not well visualized. Irregular hypoechoic region identified in the left popliteal fossa, correlating with an area of visible bruising. This does not demonstrate vascularity. Measures 3.0 x 1.4 x 1.4 cm. Impression: 1. Negative for deep venous thrombosis. 2. Irregular nonvascular hypoechoic collection in the popliteal fossa, may represent a hematoma. Recommend short-term follow-up ultrasound of the popliteal fossa, in about one month, to document that this resolves. Electronically signed by: Brent Carballo MD (05/22/2019 11:36 AM) [id number] DICTATED and SIGNED BY: BRENT CARBALLO MD DATE: 05/22/19 1136 Course & Med Decision Making Course & Med Decision Making Pertinent Labs and Imaging studies reviewed. (See chart for details) Evaluation of patient ER showed 33-year-old female patient with recent and complaining of left leg ecchymosis without known injury. Patient had unremarkable venous Doppler study except for hematoma and was advised to apply ice and follow-up with her primary care physician or FOOD STAND MANAGER. Patient asking for Percocet because she had pain in her abdomen related to her and did not have pain medication in ER and treated with 1 Percocet here even she looked pretty comfortable. I've spoken with the patient and/or caregivers. I've explained the patient's condition, diagnosis and treatment plan based on information available to me at this time. I've answered the patient's and/or caregivers questions and addressed any concerns. The patient and/or caregivers have a good understanding the patient's diagnosis, condition and treatment plan as can be expected at this point. Vital signs have been stabilized. The patient's condition is stable for discharge from the emergency department. The patient will pursue further outpatient evaluation with her primary care provider or other designated consulting physician as outlined in the discharge instructions. Patient and/or caregivers are agreeable to this plan of care and follow-up instructions have been explained in detail. The patient and/or caregivers have received these instructions in written format and expressed understanding of these discharge instructions. The patient and her caregivers are aware that if any significant change in condition or worsening of symptoms should prompt him to immediately return to this of the closest emergency department. If an emergent department is not readily available I would encourage him to call 911. Gene Disclaimer Dragon Disclaimer This electronic medical record was generated, in whole or in part, using a voice recognition dictation system. Departure Departure Impression: Primary Impression: Contusion of lower limb, left Additional Impression: Hematoma of leg Disposition: HOME, SELF-CARE (At 1200) Condition: IMPROVED Referrals: ARISTIDES BAIRD MD (PCP) Patient Instructions: Contusion, Hematoma Additional Instructions: Drink plenty of liquids Follow-up with your primary care physician in 3-5 days Return to ER if not getting better Apply ice on left leg Follow-up with your FOOD STAND MANAGER as scheduled Continue current medication Thank you for visiting [facility]. We appreciate you trusting us with your care. If any additional problems come up don't hesitate to return to visit us. Please follow up with your primary care provider so they can plan additional care if needed and know about the problem that you had. If symptoms worsen come back to the Emergency Department. Any concerning symptoms that start such as chest pain, shortness of air, weakness or numbness on one side of the body, running high fevers or any other concerning symptoms return to the ER. Problem Qualifiers Primary Impression: Contusion of lower limb, left Encounter type: initial encounter Qualified Codes: S80.12XA - Contusion of left lower leg, initial encounter Additional Impression: Hematoma of leg Encounter type: initial encounter Laterality: left Qualified Codes: S80.12XA - Contusion of left lower leg, initial encounter BERRY WANG MD May 22, 2019 12:01
== END 2019-05-22 12:09 | disposition home or self-care (01) ==
LOC: ER 10:02
DX: O90.89 Other complications of the puerperium, not elsewhere classified (principal); S80.02XA Contusion of left knee, initial encounter; F17.200 Nicotine dependence, unspecified, uncomplicated; E66.01 Morbid (severe) obesity due to excess calories; Z68.43 Body mass index [BMI] 50.0-59.9, adult; Z98.890 Other specified postprocedural states; Z90.89 Acquired absence of other organs; X58.XXXA Exposure to other specified factors, initial encounter; Y93.89 Activity, other specified; Y92.89 Other specified places as the place of occurrence of the external cause; Y99.8 Other external cause status
CPT/HCPCS: 93971; 99284

== ENCOUNTER → 2019-12-02 | Outpatient (CLI) | payer OTHER ==
[~2019-12-02] MED LIST changes: +IOHEXOL 240 MG/ML 50ML VIAL. PO ONE; +IOHEXOL 300 MG/ML 100ML VIAL. IV ONE
--- NOTE | 2019-12-02 13:34 | RAD ---
CT abdomen and pelvis with contrast History: Abdominal wall mass Technique: After the administration of intravenous contrast, CT imaging was performed of the abdomen and pelvis. Oral contrast was also given. Multiplanar images are reviewed. Exposure: One or more of the following individualized dose reduction techniques were utilized for this examination: 1. Automated exposure control 2. Adjustment of the mA and/or kV according to patient size 3. Use of iterative reconstruction technique. Comparison: None Findings: There is no significant abnormality of the visualized lung bases. There is no significant abnormality of the liver, spleen, pancreas, adrenal glands. Both kidneys enhance without hydronephrosis. There are large gallstones. There is no significant inflammatory change adjacent to the bowel. There is no evidence of bowel obstruction, free fluid, or free air. Normal appendix is visualized. Site of concern of the abdominal wall mass is not indicated, no discrete suspicious soft tissue mass identified. Impression: 1. No discrete soft tissue mass is identified, site of concern not indicated. 2. There are large gallstones. Electronically signed by: Andrei Agrawal MD (12/02/2019 1:31 PM) [facility]
== END | disposition home or self-care (01) ==
LOC: CT 09:04
PROVIDERS: ATTEND Surgery
DX: K80.20 Calculus of gallbladder without cholecystitis without obstruction (principal); R19.00 Intra-abdominal and pelvic swelling, mass and lump, unspecified site
CPT/HCPCS: 74177; Q9966; Q9967